=== PATIENT | female | born 1950 | race Caucasian/White ===

== ENCOUNTER 2017-01-08 12:32 | Emergency (ER) | payer MEDICARE | END 2017-01-08 13:01 | disposition home or self-care (01) | LOC: D.ER 12:32 | DX: S52.501A Unspecified fracture of the lower end of right radius, initial encounter for closed fracture (principal); W19.XXXA Unspecified fall, initial encounter; Y93.89 Activity, other specified; Y92.019 Unspecified place in single-family (private) house as the place of occurrence of the external cause; E03.9 Hypothyroidism, unspecified; I95.9 Hypotension, unspecified; E78.5 Hyperlipidemia, unspecified ==

== ENCOUNTER → 2018-02-07 16:38 | Outpatient (CLI) | payer MEDICARE | END | disposition home or self-care (01) | LOC: D.MAMMO 01-22 16:00 | DX: Z12.31 Encounter for screening mammogram for malignant neoplasm of breast (principal) ==